=== PATIENT | female | born 1990 | race Caucasian/White ===

== ENCOUNTER 2016-04-01 14:31 | Inpatient (IN) | payer SELFPAY ==
[~2016-04-01] VITALS: Ht 162.6 cm; Wt 80.7 kg
[2016-04-01] MEDS ORDERED: CEFTRIAXONE 1 GM VIAL ONE (16:12)
[2016-04-01 17:38] VITALS: BP_SYST 71; RESP 16
[2016-04-01 17:39] VITALS: Ht 162.6 cm; Wt 80.7 kg
[2016-04-01 18:05] VITALS: BP_SYST 83; RESP 16
[2016-04-01] MEDS ORDERED: DIPHENHYDRAMINE 50 MG/ML VIAL IM PRN (18:45)
[2016-04-01] MEDS ORDERED: ACETAMINOPHEN 325 MG TAB PO PRN (18:45)
[2016-04-01] MEDS ORDERED: DIPHENHYDRAMINE 50 MG CAP PO PRN (18:45)
[2016-04-01] MEDS ORDERED: HALOPERIDOL 5 MG/ML VIAL IM PRN (18:45)
[2016-04-01] MEDS ORDERED: HALOPERIDOL 5 MG TAB PO PRN (18:45)
[2016-04-01] MEDS ORDERED: ALU/MAG/SIM 30 ML UDC PO PRN (18:45)
[2016-04-01] MEDS ORDERED: MAG HYDROX 30 ML UDC PO PRN (18:45)
[2016-04-01] MEDS ORDERED: LORAZEPAM 2 MG TAB PO PRN (18:45)
[2016-04-01] MEDS ORDERED: LORAZEPAM 2 MG/ML VIAL IM PRN (18:45)
[2016-04-01 19:22] VITALS: BP_SYST 90; RESP 20; TEMP 97.8
[2016-04-01 21:50] VITALS: BP_SYST 97; RESP 18
[2016-04-02 09:00] VITALS: BP_SYST 132; RESP 18; TEMP 97.8
[2016-04-02] MEDS ORDERED: ESCITALOPRAM 10 MG TAB PO SCH (09:00)
[2016-04-02 09:32] VITALS: BP_SYST 132; RESP 18; TEMP 97.8
[2016-04-02] MEDS ORDERED: Amoxicillin Tr 500 MG CAP PO SCH (11:05)
[2016-04-02 11:28] VITALS: BP_SYST 132; RESP 18; TEMP 97.8
== END 2016-04-02 14:44 | disposition home or self-care (01) | DRG 882 ==
LOC: ENRESERVDT → ENRESERVTM → ER 14:31 → EMR 16:50 → PSY 17:15
PROVIDERS: ADMIT Psychiatry & Neurology Psychiatry; ATTEND Psychiatry & Neurology Psychiatry
DX: F43.10 Post-traumatic stress disorder, unspecified (principal); O23.41 Unspecified infection of urinary tract in pregnancy, first trimester; F60.3 Borderline personality disorder; Z72.0 Tobacco use; E66.9 Obesity, unspecified
CPT/HCPCS: 36415; 80053; 80074; 80076; 80307; 80320; 80329; 81001; 84439; 84443; 84702; 85025; 85610; 87077; 87088; 87186; 87389; 96372

== ENCOUNTER 2016-04-06 03:12 | Emergency (ER) | payer MEDICAID | END 2016-04-06 06:38 | disposition home or self-care (01) | LOC: ER 03:12 | DX: Z3A.01 Less than 8 weeks gestation of pregnancy (principal); N76.0 Acute vaginitis; B37.9 Candidiasis, unspecified; F17.210 Nicotine dependence, cigarettes, uncomplicated | CPT/HCPCS: 36415; 76817; 80053; 81001; 84702; 85025; 87491; 87591; 87800 ==